=== PATIENT | male | born 1945 | race Hispanic/Latino ===

== ENCOUNTER → 2017-08-12 | Outpatient (CLI) | payer OTHER ==
[~2017-08-12] MED LIST: COSOPT EYE DROP10 ML BOTH EYES; HYZAAR 100-11 TABLET PO; LODINE400 MG PO; PROAIR HFA8.5 GM IH; TRAVATAN Z5 ML BOTH EYES
[2017-08-12 13:05] LABS: POINT-OF-CARE METER ID UU13113819
== END | disposition home or self-care (01) ==
LOC: OPR 09:26 → EDSTATUS 10:00 → OPR 10:00
PROVIDERS: Internal Medicine Pulmonary Disease
DX: C34.12 Malignant neoplasm of upper lobe, left bronchus or lung (principal); F17.200 Nicotine dependence, unspecified, uncomplicated
CPT/HCPCS: 71010; 77012; 82948; 87070; 87075; 87205; 88173; 88305; 88341 TC; 88342 TC; J3010

== ENCOUNTER → 2017-08-21 | Outpatient (CLI) | payer MEDICARE, OTHER | END | disposition home or self-care (01) | LOC: CDC 13:17 | DX: C34.90 Malignant neoplasm of unspecified part of unspecified bronchus or lung (principal); R00.0 Tachycardia, unspecified | CPT/HCPCS: 93000 ==

== ENCOUNTER 2017-09-12 12:02 | Day surgery (SDC) | payer OTHER ==
[~2017-09-12] VITALS: Ht 165.1 cm; Wt 88.4 kg
[~2017-09-12 12:02] MED LIST changes: +LO-DOSE ASPIRIN81 M1 PO
[2017-09-12 12:40] VITALS: BP 134/77
[2017-09-12 13:38] LABS: BASOPHIL (%) 0.5 % (0-1); BASOPHIL COUNT 0.1 K/uL (0-0.1); EOSINOPHIL (%) 2.7 % (0-5); EOSINOPHIL COUNT 0.3 K/uL (0-0.3); HEMATOCRIT 36.9 % (38.0-50.0); HEMOGLOBIN 11.9 G/DL (12.5-16.6); IMMATURE GRANULOCYTE (%) 0.3 % (0.0-0.7); LYMPHOCYTE (%) 14.9 % (15-42); LYMPHOCYTE COUNT 1.7 K/uL (1.0-2.8); MCH 29.6 PG (29.0-34.0); MCHC 32.2 G/DL (30.0-36.0); MCV 91.8 FL (86-99); MONOCYTE COUNT 0.7 K/uL (0-0.8); NEUTROPHIL (%) 75.6 % (45-76); NEUTROPHIL COUNT 8.7 K/uL (1.8-6.4); PLATELET COUNT 405 K/uL (156-360); RBC DIS.WIDTH-CV 15.1 % (11.8-14.6); RBC DIS.WIDTH-SD 50.5 % (39-53); RED BLOOD COUNT 4.02 M/uL (4.00-5.50); WHITE BLOOD COUNT 11.5 K/uL (4.1-10.2)
[2017-09-12 13:45] LABS: INTER. NORMALIZED RATIO 1.2
[2017-09-12] MEDS ORDERED: COLACE100 MG PO (17:06)
[2017-09-12] MEDS ORDERED: HYDROCODON-ACE1 EAC7 PO (17:06)
[2017-09-12 17:33] VITALS: BP 131/66
[2017-09-12 18:22] VITALS: BP 139/66
== END 2017-09-12 18:50 | disposition home or self-care (01) ==
LOC: SDC 12:02
PROVIDERS: Thoracic Surgery (Cardiothoracic Vascular Surgery)
PROC: 07B74ZX Excision of Thorax Lymphatic, Percutaneous Endoscopic Approach, Diagnostic (ICD-10-PCS; principal; 2017-09-12)
DX: C34.12 Malignant neoplasm of upper lobe, left bronchus or lung (principal); I10 Essential (primary) hypertension; E11.9 Type 2 diabetes mellitus without complications; Z86.718 Personal history of other venous thrombosis and embolism; Z87.891 Personal history of nicotine dependence; Z79.82 Long term (current) use of aspirin
CPT/HCPCS: 85025; 85610; 85730; 86850; 86900; 86901; 88305; J0131; J0690; J1100; J1885; J2405; J2710; J3010

== ENCOUNTER 2017-09-26 22:09 | Inpatient (IN) | payer OTHER ==
[~2017-09-26] VITALS: Ht 167.6 cm; Wt 84.5 kg
[~2017-09-26 22:09] MED LIST changes: +COLACE100 MG PO; +HYDROCODON-ACE1 EAC7 PO
[2017-09-27 08:27] VITALS: BP 166/85
[2017-09-27 09:12] LABS: INTER. NORMALIZED RATIO 1.3
[2017-09-27 09:15] LABS: PTT 28.4 SEC (25-37)
[2017-09-27 23:00] VITALS: BP 164/11
[2017-09-27 23:15] VITALS: BP 179/121
[2017-09-27 23:30] VITALS: BP 163/119
[2017-09-27 23:45] VITALS: BP 164/111
[2017-09-28] VITALS (23 sets, daily range): BP systolic 104–173; BP diastolic 70–115
[2017-09-28 07:13] LABS: HEMOGLOBIN 10.3 G/DL (12.5-16.6); MCH 28.9 PG (29.0-34.0); MCHC 32.2 G/DL (30.0-36.0); MCV 89.9 FL (86-99); PLATELET COUNT 326 K/uL (156-360); RBC DIS.WIDTH-CV 14.7 % (11.8-14.6); RBC DIS.WIDTH-SD 48.6 % (39-53); RED BLOOD COUNT 3.56 M/uL (4.00-5.50); WHITE BLOOD COUNT 14.6 K/uL (4.1-10.2)
[2017-09-28 07:29] LABS: CHLORIDE 97 MEQ/L (99-109); CREATININE 0.7 MG/DL (0.6-1.3); GFR ESTIMATE (CALCULATED) > 59 mL/min/ (58.99-99999); GLUCOSE 188 mg/dL (70-99); POTASSIUM 4.2 MEQ/L (3.7-5.4); SODIUM 133 MEQ/L (136-147); UREA NITROGEN (BUN) 12 mg/dL (9-23)
[2017-09-29] VITALS (10 sets, daily range): BP systolic 116–150; BP diastolic 67–97
[2017-09-30] VITALS (7 sets, daily range): BP systolic 95–161; BP diastolic 79–90
[2017-09-30 10:11] LABS: HEMOGLOBIN 11.2 G/DL (12.5-16.6); MCH 28.6 PG (29.0-34.0); MCHC 31.1 G/DL (30.0-36.0); MCV 92.1 FL (86-99); PLATELET COUNT 384 K/uL (156-360); RBC DIS.WIDTH-CV 15.2 % (11.8-14.6); RBC DIS.WIDTH-SD 51.1 % (39-53); RED BLOOD COUNT 3.91 M/uL (4.00-5.50); WHITE BLOOD COUNT 14.1 K/uL (4.1-10.2)
[2017-09-30 10:53] LABS: CHLORIDE 98 MEQ/L (99-109); CREATININE 0.6 MG/DL (0.6-1.3); GFR ESTIMATE (CALCULATED) > 59 mL/min/ (58.99-99999); GLUCOSE 222 mg/dL (70-99); SODIUM 139 MEQ/L (136-147); UREA NITROGEN (BUN) 13 mg/dL (9-23)
[2017-10-01] VITALS (7 sets, daily range): BP systolic 117–165; BP diastolic 75–94
[2017-10-01 05:37] LABS: HEMATOCRIT 37.4 % (38.0-50.0); HEMOGLOBIN 11.4 G/DL (12.5-16.6); MCH 28.9 PG (29.0-34.0); MCHC 30.5 G/DL (30.0-36.0); MCV 94.9 FL (86-99); PLATELET COUNT 383 K/uL (156-360); RBC DIS.WIDTH-CV 15.1 % (11.8-14.6); RBC DIS.WIDTH-SD 52.6 % (39-53); RED BLOOD COUNT 3.94 M/uL (4.00-5.50); WHITE BLOOD COUNT 11.3 K/uL (4.1-10.2)
[2017-10-01 06:10] LABS: CHLORIDE 98 MEQ/L (99-109); CREATININE 0.7 MG/DL (0.6-1.3); GFR ESTIMATE (CALCULATED) > 59 mL/min/ (58.99-99999); GLUCOSE 161 mg/dL (70-99); POTASSIUM 4.4 MEQ/L (3.7-5.4); SODIUM 139 MEQ/L (136-147); UREA NITROGEN (BUN) 14 mg/dL (9-23)
[2017-10-02 04:13] VITALS: BP 158/79
[2017-10-02 05:59] LABS: HEMATOCRIT 35.2 % (38.0-50.0); HEMOGLOBIN 10.8 G/DL (12.5-16.6); MCH 27.9 PG (29.0-34.0); MCHC 30.7 G/DL (30.0-36.0); NRBC (%) 0.2 /100 WBC (0-0); PLATELET COUNT 494 K/uL (156-360); RBC DIS.WIDTH-CV 15.2 % (11.8-14.6); RBC DIS.WIDTH-SD 50.2 % (39-53); RED BLOOD COUNT 3.87 M/uL (4.00-5.50); WHITE BLOOD COUNT 10.9 K/uL (4.1-10.2)
[2017-10-02 06:41] LABS: CHLORIDE 98 MEQ/L (99-109); CREATININE 0.8 MG/DL (0.6-1.3); GFR ESTIMATE (CALCULATED) > 59 mL/min/ (58.99-99999); GLUCOSE 160 mg/dL (70-99); POTASSIUM 4.5 MEQ/L (3.7-5.4); SODIUM 140 MEQ/L (136-147); UREA NITROGEN (BUN) 16 mg/dL (9-23)
[2017-10-02 07:06] VITALS: BP 161/82
[2017-10-02 11:30] VITALS: BP 150/89
[2017-10-02 15:59] VITALS: BP 161/90
[2017-10-02 19:53] VITALS: BP 137/73
[2017-10-03 00:16] VITALS: BP 145/84
[2017-10-03 04:44] VITALS: BP 147/75
[2017-10-03 07:19] VITALS: BP 155/78
[2017-10-03 11:34] VITALS: BP 174/81
[2017-10-03 16:28] VITALS: BP 138/73
[2017-10-03 20:31] VITALS: BP 136/85
[2017-10-04 00:11] VITALS: BP 133/70
[2017-10-04 04:40] VITALS: BP 140/85
[2017-10-04 05:22] LABS: HEMATOCRIT 37.3 % (38.0-50.0); HEMOGLOBIN 11.8 G/DL (12.5-16.6); MCH 28.6 PG (29.0-34.0); MCHC 31.6 G/DL (30.0-36.0); MCV 90.5 FL (86-99); PLATELET COUNT 476 K/uL (156-360); RBC DIS.WIDTH-CV 15.6 % (11.8-14.6); RBC DIS.WIDTH-SD 49.9 % (39-53); RED BLOOD COUNT 4.12 M/uL (4.00-5.50); WHITE BLOOD COUNT 12.5 K/uL (4.1-10.2)
[2017-10-04 05:54] LABS: CHLORIDE 99 MEQ/L (99-109); CREATININE 0.7 MG/DL (0.6-1.3); GFR ESTIMATE (CALCULATED) > 59 mL/min/ (58.99-99999); GLUCOSE 155 mg/dL (70-99); POTASSIUM 4.4 MEQ/L (3.7-5.4); SODIUM 137 MEQ/L (136-147); UREA NITROGEN (BUN) 18 mg/dL (9-23)
[2017-10-04 07:27] VITALS: BP 137/72
[2017-10-04 11:42] VITALS: BP 134/880
[2017-10-04] MEDS ORDERED: DOCUSATE SODIU100 MG PO (15:52)
[2017-10-04] MEDS ORDERED: DIGOXIN250 MCG PO (15:52)
[2017-10-04] MEDS ORDERED: K-DUR20 MEQ PO (15:52)
[2017-10-04] MEDS ORDERED: ENDOCET 5-3251 EACH PO (15:52)
[2017-10-04] MEDS ORDERED: LOPRESSOR50 MG PO (15:52)
[2017-10-04] MEDS ORDERED: MOTRIN600 MG PO (15:52)
[2017-10-04] MEDS ORDERED: FUROSEMIDE20 MG PO (15:52)
== END 2017-10-04 20:00 | disposition home health service (06) | DRG 165 ==
LOC: ENRESERV 22:09 → 4WEST 09-27 08:09 → 2SOUTH 09-27 08:09 → ENRESERV 09-27 22:08 → 4WEST 09-27 22:58 → ENRESERV 09-30 17:44 → 4WEST 09-30 18:54 → ENRESERV 09-30 21:32 → 4EAST 10-01 → ENPENDDIS 10-04 → 4EAST 10-04 20:00
PROVIDERS: Thoracic Surgery (Cardiothoracic Vascular Surgery)
PROC: 07T70ZZ Resection of Thorax Lymphatic, Open Approach (ICD-10-PCS; principal; 2017-09-27)
PROC: 3E0R3BZ Introduction of Anesthetic Agent into Spinal Canal, Percutaneous Approach (ICD-10-PCS; principal; 2017-09-27)
PROC: 00HU33Z Insertion of Infusion Device into Spinal Canal, Percutaneous Approach (ICD-10-PCS; principal; 2017-09-27)
PROC: 0BTL0ZZ Resection of Left Lung, Open Approach (ICD-10-PCS; principal; 2017-09-27)
DX: C34.12 Malignant neoplasm of upper lobe, left bronchus or lung (principal); I10 Essential (primary) hypertension; E11.9 Type 2 diabetes mellitus without complications; E66.9 Obesity, unspecified; Z68.30 Body mass index [BMI] 30.0-30.9, adult; H40.9 Unspecified glaucoma; Z86.718 Personal history of other venous thrombosis and embolism; Z87.891 Personal history of nicotine dependence; Z83.3 Family history of diabetes mellitus; Z82.49 Family history of ischemic heart disease and other diseases of the circulatory system; Z82.3 Family history of stroke
CPT/HCPCS: 71045; 71046; 80048; 82948; 85027; 85610; 85730; 86850; 86900; 86901; 86920; 87641; 88300; 88305; 88309; 88342 TC; 93005; 94010; 94640 76; 94760; 94799; 97530 GO; 99202; J0131; J0330; J0690; J1100; J1160; J1170; J1644; J1815; J2250; J2405; J2710; J3010; J7050; J7120; S0020